=== PATIENT | female | born 1940 | race African-American/Black ===

== ENCOUNTER 2018-12-03 15:20 | Observation (INO) | payer OTHER, MEDICARE ==
[2018-12-03 15:46] VITALS: BMI 27.6
[2018-12-03] MEDS ORDERED: SODIUM CHLORIDE 500 ML IV STA (15:56)
[2018-12-03 16:32] LABS: BASO % 0.9 % (0-2.0); EOS % 1.1 % (0-4.5); HEMATOCRIT 44.8 % (32.4-45.2); HEMOGLOBIN 14.1 GM/dL (10.7-15.3); LYMPH % 25.1 % (8-40); MCH 26.2 pg (25.7-33.7); MCHC 31.4 g/dl (32.0-36.0); MEAN CELL VOLUME 83.5 fl (80-96); MEAN PLT VOLUME 8.3 fl (7.5-11.1); MONO % 11.1 % (3.8-10.2); NEUT % 61.8 % (42.8-82.8); PLATELET COUNT 186 K/MM3 (134-434); RBC 5.37 M/mm3 (3.60-5.2); RDW 14.3 % (11.6-15.6); WHITE BLOOD COUNT 4.1 K/mm3 (4.0-10.0)
--- NOTE | 2018-12-03 16:45 | PDOC ---
Documentation entered by Wilfredo Olivera SCRIBE, acting as scribe for Mildred Sow MD. Mildred Sow MD: This documentation has been prepared by the ayeibeJarod Daniel, SCRIBE, under my direction and personally reviewed by me in its entirety. I confirm that the documentation accurately reflects all work, treatment, procedures, and medical decision making performed by me. Attending Attestation - Resident Resident Name: Terrance Lowery - ED Attending Attestation I have performed the following: I have examined & evaluated the patient, The case was reviewed & discussed with the resident, I agree w/resident's findings & plan, Exceptions are as noted - HPI HPI: 12/03/18 16:09 78 year old female with no past medical history here today for evaluation of syncopal episodes. The patient reports that she has had 3 syncopal episodes this week with 2 episodes today. She reports losing consciousness for 2-3 minutes without any seizure activity or postictal period. She notes that her family was able to catch her each time and she did not hit the ground. Patient denies headache, lightheadedness. Denies fever, chills. Denies chest pain, shortness of breath. Denies nausea, vomiting, diarrhea, abdominal pain. Allergies: NKA - Physicial Exam PE: GENERAL: Awake, alert, and fully oriented, in no acute distress HEAD: No signs of trauma EYES: PERRLA, EOMI, sclera anicteric, conjunctiva clear ENT: Auricles normal inspection, hearing grossly normal, nares patent, oropharynx clear without exudates. Moist mucosa NECK: Normal ROM, supple, no lymphadenopathy, JVD, or masses LUNGS: Breath sounds equal, clear to auscultation bilaterally. No wheezes, and no crackles HEART: Regular rate and rhythm, normal S1 and S2, no murmurs, rubs or gallops ABDOMEN: Soft, nontender, normoactive bowel sounds. No guarding, no rebound. No masses EXTREMITIES: Normal range of motion, no edema. No clubbing or cyanosis. No cords, erythema, or tenderness NEUROLOGICAL: Cranial nerves II through XII grossly intact. Normal speech, normal gait. Motor and sensation intact SKIN: Warm, Dry, normal turgor, no rashes or lesions noted. - Medical Decision Making Pt with multiple episodes of syncope at home, asymptomatic at present. Symptoms are more consistent with syncope rather than seizure. Will obtain cardiac workup and admit.
[2018-12-03 16:54] LABS: ALBUMIN 4.2 g/dl (3.4-5.0); BILIRUBIN,TOTAL 1.2 mg/dL (0.2-1); CALCIUM 9.6 mg/dL (8.5-10.1); CREATININE 1.1 mg/dL (0.55-1.3); MAGNESIUM 2.4 mg/dL (1.8-2.4); TOT PROT 7.4 g/dl (6.4-8.2)
--- NOTE | 2018-12-03 16:55 | PDOC ---
History of Present Illness - General Chief Complaint: Syncope/Near Syncope Stated Complaint: SYNCOPE Time Seen by Provider: 12/03/18 15:46 History Source: Patient, Family Exam Limitations: No Limitations - History of Present Illness Initial Comments: 12/03/18 16:42 Patient is a 78F with no reported medical history here today complaining of syncope. Patient's daughter states that the patient passed out twice today, losing consciousness for about 3 minutes before regaining consciousness. Did not hit head. Patient returned to baseline rapidly with no postictal period. Denies chest pain, fevers, chills, nausea, vomiting, and shortness of breath. Denies prodromal symptoms. Patient initially stated that she did not pass out at all, but admitted to passing out after daughter confronted her. Patient had episode of syncope 6 days prior as well, and went to [facility] in [place] where she was diagnosed with an UTI, antibiotics finished yesterday. Patient had outpatient holter, head ct, and carotid studies done on Tuesday. Case d/w Dr Bettencourt, patient's PCP, who states she does not have the results of the studies but expects to have them Tuesday. PCP: Sg ([phone]) Past History - Past Medical History Allergies/Adverse Reactions: Allergies Allergy/AdvReac Type Severity Reaction Status Date / Time No Known Allergies Allergy Verified 12/03/18 15:34 Home Medications: Ambulatory Orders NK [No Known Home Medication] 12/03/18 COPD: No - Immunization History Immunization Up to Date: Yes - Suicide/Smoking/Psychosocial Hx Smoking History: Never smoked Hx Alcohol Use: No Drug/Substance Use Hx: No Review of Systems - Review of Systems Able to Perform ROS?: Yes Comments:: 12/03/18 16:59 GENERAL/CONSTITUTIONAL: No fever or chills. No weakness. HEAD, EYES, EARS, NOSE AND THROAT: No change in vision. No sore throat. CARDIOVASCULAR: No chest pain or shortness of breath RESPIRATORY: No cough, wheezing, or hemoptysis. GASTROINTESTINAL: No nausea, vomiting, diarrhea or constipation. GENITOURINARY: No dysuria, frequency, or change in urination. MUSCULOSKELETAL: No joint or muscle swelling or pain. No neck or back pain. SKIN: No rash NEUROLOGIC: No headache, vertigo, +loss of consciousness, no change in strength/ sensation. ENDOCRINE: No increased thirst. No abnormal weight change HEMATOLOGIC/LYMPHATIC: No anemia, easy bleeding, or history of blood clots. ALLERGIC/IMMUNOLOGIC: No hives or skin allergy. *Physical Exam - Vital Signs Last Vital Signs Temp Pulse Resp BP Pulse Ox 97.9 F 70 18 142/94 100 12/03/18 15:37 12/03/18 15:37 12/03/18 15:37 12/03/18 15:37 12/03/18 15:44 - Physical Exam Comments: 12/03/18 16:59 GENERAL: Awake, alert, and fully oriented, in no acute distress HEAD: No signs of trauma, normocephalic, atraumatic EYES: PERRLA, EOMI, sclera anicteric, conjunctiva clear ENT: Auricles normal inspection, hearing grossly normal, nares patent, oropharynx clear without exudates. Moist mucosa NECK: Normal ROM, supple, no lymphadenopathy, JVD, or masses LUNGS: No distress, speaks full sentences, clear to auscultation bilaterally HEART: Regular rate and rhythm, normal S1 and S2, no murmurs, rubs or gallops, peripheral pulses normal and equal bilaterally. ABDOMEN: Soft, nontender, normoactive bowel sounds. No guarding, no rebound. No masses EXTREMITIES: Normal inspection, Normal range of motion, no edema. No clubbing or cyanosis. NEUROLOGICAL: Cranial nerves II through XII grossly intact. Normal speech, no focal sensorimotor deficits SKIN: Warm, Dry, normal turgor, no rashes or lesions noted. ED Treatment Course - LABORATORY CBC & Chemistry Diagram: 12/03/18 16:17 12/03/18 16:17 - RADIOLOGY Radiology Studies Ordered: Category Date Time Status CHEST X-RAY PORTABLE* [RAD] Stat Radiology 12/03/18 15:57 Ordered Medical Decision Making - Medical Decision Making 12/03/18 16:59 Patient is a 78F with no reported medical history here today with syncope. Vitals normal and stable. DDx includes, but is not limited to: metabolic abnormality, uti, vasovagal, arrhythmia. Will evaluate with cbc, cmp, trop, ekg , cxr, pt/inr. EKG shows NSR with rate of 70. No st elevations/depressions. Normal axis. Normal intervals. No significant t wave abnormalities. 12/03/18 17:28 CXR clear. CBC normal. CMP normal. Trop neg. Will place patient in tele obs. 12/03/18 17:43 Dr Sultana, accepted to Dr Rodriguez. *DC/Admit/Observation/Transfer Diagnosis at time of Disposition: Syncope - Discharge Dispostion Condition at time of disposition: Stable Decision to Admit order: Yes - Referrals - Patient Instructions - Post Discharge Activity
[2018-12-03 16:58] LABS: INR 0.99 (0.83-1.09); PROTHROMBIN TIME (PATIENT) 11.7 SEC (9.7-13.0)
[2018-12-03 17:03] LABS: URINE APPEARANCE CLEAR; URINE BILIRUBIN NEGATIVE (NEGATIVE); URINE COLOR YELLOW; URINE GLUCOSE (UA) NEGATIVE (NEGATIVE); URINE KETONE NEGATIVE (NEGATIVE); URINE LEUK ESTERASE NEGATIVE (NEGATIVE); URINE NITRITE NEGATIVE (NEGATIVE); URINE PROTEIN NEGATIVE (NEGATIVE); URINE UROBILINOGEN 0.2 mg/dL (0.2-1.0)
--- NOTE | 2018-12-03 17:50 | PN ---
Teaching Attending Note Name of Resident: Gerda Sultana ATTENDING PHYSICIAN STATEMENT I saw and evaluated the patient. I reviewed the resident's note and discussed the case with the resident. I agree with the resident's findings and plan as documented. SUBJECTIVE: Reports 2 syncopal episodes today with no prodrome. No preceeding CP , palpitations, lightheadedness, diaphoresis, nausea. No head injury as daughter caught her both times. LOC for 2-3 minutes at a time. Daugter reports patient shaking and eyes rolling back. No tongue biting, No urinary or bowel incontinence. No post-episodic confusion. OBJECTIVE: Afebrile, Hemodynamically Stable. Last Vital Signs Temp Pulse Resp BP Pulse Ox 97.9 F 70 18 142/94 100 12/03/18 15:37 12/03/18 15:37 12/03/18 15:37 12/03/18 15:37 12/03/18 15:44 HEENT- Atraumatic, Normocephalic Heart - S1, S2, RRR Lungs - Clear to auscultation Abdomen - soft, non-tender. Bowel Sounds normal Extremities - no edema, no calf tenderness Neuro - AAO x 3. Tone/Power normal all 4 extremities. Laboratory Results - last 24 hr 12/03/18 12/03/18 12/03/18 16:17 16:17 16:17 WBC 4.1 RBC 5.37 H Hgb 14.1 Hct 44.8 MCV 83.5 MCH 26.2 MCHC 31.4 L RDW 14.3 Plt Count 186 MPV 8.3 Absolute Neuts (auto) 2.5 Neutrophils % 61.8 Lymphocytes % 25.1 Monocytes % 11.1 H Eosinophils % 1.1 Basophils % 0.9 Nucleated RBC % 0 PT with INR 11.70 INR 0.99 Sodium 137 Potassium 5.0 Chloride 104 Carbon Dioxide 29 Anion Gap 4 L BUN 12 Creatinine 1.1 Est GFR (CKD-EPI)AfAm 55.30 Est GFR (CKD-EPI)NonAf 47.71 Random Glucose 83 Calcium 9.6 Magnesium 2.4 Total Bilirubin 1.2 H AST 16 ALT 16 Alkaline Phosphatase 63 Creatine Kinase Creatine Kinase Index CK-MB (CK-2) Troponin I Total Protein 7.4 Albumin 4.2 Urine Color Urine Appearance Urine pH Ur Specific [place] Urine Protein Urine Glucose (UA) Urine Ketones Urine Blood Urine Nitrite Urine Bilirubin Urine Urobilinogen Ur Leukocyte Esterase 12/03/18 12/03/18 16:17 16:17 WBC RBC Hgb Hct MCV MCH MCHC RDW Plt Count MPV Absolute Neuts (auto) Neutrophils % Lymphocytes % Monocytes % Eosinophils % Basophils % Nucleated RBC % PT with INR INR Sodium Potassium Chloride Carbon Dioxide Anion Gap BUN Creatinine Est GFR (CKD-EPI)AfAm Est GFR (CKD-EPI)NonAf Random Glucose Calcium Magnesium Total Bilirubin AST ALT Alkaline Phosphatase Creatine Kinase 265 H Creatine Kinase Index 0.4 CK-MB (CK-2) 1.3 Troponin I < 0.02 Total Protein Albumin Urine Color Yellow Urine Appearance Clear Urine pH 7.0 Ur Specific [place] 1.014 Urine Protein Negative Urine Glucose (UA) Negative Urine Ketones Negative Urine Blood Negative Urine Nitrite Negative Urine Bilirubin Negative Urine Urobilinogen 0.2 Ur Leukocyte Esterase Negative ASSESSMENT AND PLAN: 78 year old female with no significant PMH, presents with episodes of syncope in the past week. She reports 2 syncopal episodes today with no prodrome. No preceeding CP, palpitations, lightheadedness, diaphoresis, nausea. No head injury as daughter caught her both times. LOC for 2-3 minutes at a time. Daughter reports patient shaking and eyes rolling back. No tongue biting, No urinary or bowel incontinence. No post-episodic confusion. 1. Recurrent Syncope, etiology unclear, possible seizure Patient apparently had out-patient CT Head, Carotid Duplex and Holter yesterday (12/02/18) as per Dr. Bettencourt to work-up first episode of syncope 6 days ago. Currently neurologically intact - will wait on above results, likely back tomorrow as per Dr. Bettencourt. Orthostatics negative. Will order Echocardiogram, EEG Telemonitoring overnight. Neuro consult. Neurochecks. DVT Px - Heparin SQ
--- NOTE | 2018-12-03 18:25 | HP ---
CHIEF COMPLAINT: syncope x 2 PCP: Dr. Bettencourt [phone] HISTORY OF PRESENT ILLNESS: 78 y/o F with no significant PMH who presents to the ED c/o two episodes of "passing out" which occurred today. As per daughter, pt was standing up and having a conversation with her at 2pm this afternoon when she started to shake. States her UE shook, her eyes rolled to the back of her head, and then she "began to go down." Daughter caught her. +LOC for 2-3 min before she came to. No head trauma. Pt did not have chest pain, MERCHANT, palpitations, and did not feel emotional, or increasingly warm before the event. A few minutes after this episode, patient had an identical episode to first, daughter caught her once again. Denies MERCHANT, fever, chills, SOB, chest pain or pressure, or changes in urinary or bowel function. No incontinence or tongue biting. Of note, six days ago on , [place] She felt very warm so she decided to sit in a colleague's truck to avoid the heat. While in the truck, her colleague who was a physician noted that she syncopized while seated. States her "pulse rate was low" when it occurred. She told her PCP about this event, and had a holter, head CT, carotid duplex done on Tue. She is supposed to get the results on Tuesday. Pt has seen a obstetrics scrub nurse in the past, Dr. Rodriguez and states she has had stress testing done previously and "used to have a problem with her heart" but cannot describe. ER course was notable for: (1) NS 500cc (2) orthostatics (-) (3) Recent Travel: denies PAST MEDICAL HISTORY: denies PAST SURGICAL HISTORY: hysterectomy, b/l cataract Social History: lives in [place] Smoking: denies Alcohol: social Drugs: denies Family History: non-contributory Allergies No Known Allergies Allergy (Verified 12/03/18 15:34) HOME MEDICATIONS: Home Medications Medication Instructions Recorded NK [No Known Home Medication] 12/03/18 confirmed with patient REVIEW OF SYSTEMS CONSTITUTIONAL: Absent: fever, chills, diaphoresis, generalized weakness, malaise, loss of appetite, weight change HEENT: Absent: rhinorrhea, nasal congestion, throat pain, throat swelling, difficulty swallowing, mouth swelling, ear pain, eye pain, visual changes CARDIOVASCULAR: Absent: chest pain, syncope, palpitations, irregular heart rate, lightheadedness , peripheral edema RESPIRATORY: Absent: cough, shortness of breath, dyspnea with exertion, orthopnea, wheezing, stridor, hemoptysis GASTROINTESTINAL: Absent: abdominal pain, abdominal distension, nausea, vomiting, diarrhea, constipation, melena, hematochezia GENITOURINARY: Absent: dysuria, frequency, urgency, hesitancy, hematuria, flank pain, genital pain MUSCULOSKELETAL: Absent: myalgia, arthralgia, joint swelling, back pain, neck pain SKIN: Absent: rash, itching, pallor HEMATOLOGIC/IMMUNOLOGIC: Absent: easy bleeding, easy bruising, lymphadenopathy, frequent infections ENDOCRINE: Absent: unexplained weight gain, unexplained weight loss, heat intolerance, cold intolerance NEUROLOGIC: Absent: headache, focal weakness or paresthesias, dizziness, unsteady gait, seizure, mental status changes, bladder or bowel incontinence PSYCHIATRIC: Absent: anxiety, depression, suicidal or homicidal ideation, hallucinations. PHYSICAL EXAMINATION Vital Signs - 24 hr 12/03/18 12/03/18 15:37 18:01 Temperature 97.9 F 98.3 F Pulse Rate 70 Pulse Rate [ 75 Left Apical] Respiratory 18 18 Rate Blood Pressure 142/94 Blood Pressure 146/98 [Left Arm] O2 Sat by Pulse 100 100 Oximetry (%) GENERAL: Awake, alert, and fully oriented, in no acute distress. HEAD: Normal with no signs of trauma. EYES: Pupils equal, round and reactive to light, extraocular movements intact, sclera anicteric, conjunctiva clear. EARS, NOSE, THROAT: Ears normal, nares patent, oropharynx clear without exudates. Moist mucous membranes. NECK: Normal range of motion, supple LUNGS: Breath sounds equal, clear to auscultation bilaterally. No wheezes, and no crackles. No accessory muscle use. HEART: Regular rate and rhythm, normal S1 and S2 without murmur, rub or gallop. ABDOMEN: Soft, nontender, not distended, normoactive bowel sounds, no guarding, no rebound, no masses. MUSCULOSKELETAL: Normal range of motion at all joints. No bony deformities or tenderness. No CVA tenderness. LOWER EXTREMITIES: 2+ pt pulses, warm, well-perfused. No edema. NEUROLOGICAL: Cranial nerves II-XII intact. Normal speech. Ambulating well with ease. PSYCHIATRIC: Cooperative. SKIN: Warm, dry Laboratory Tests 12/03/18 12/03/18 12/03/18 16:17 16:17 16:17 WBC 4.1 Hgb 14.1 Hct 44.8 Plt Count 186 Sodium 137 Potassium 5.0 Chloride 104 Carbon Dioxide 29 Anion Gap 4 L BUN 12 Creatinine 1.1 Total Bilirubin 1.2 H Creatine Kinase Urine Appearance Clear Urine pH 7.0 Ur Specific [place] 1.014 Urine Protein Negative Urine Glucose (UA) Negative Urine Ketones Negative Urine Blood Negative Urine Nitrite Negative Urine Bilirubin Negative Ur Leukocyte Esterase Negative 12/03/18 16:17 Total Bilirubin Creatine Kinase 265 H Urine Appearance EKG: NSR, no St or T wave changes, qtc 371ms CXR: no acute changes ASSESSMENT/PLAN: 78 y/o F with no significant PMH who presents to the ED c/o two episodes of "passing out" which occurred today. #Syncope vs. seizure -possible vasovagal, or 2/2 arrythmia not picked up by EKG has past hx cardiac issues -could also be seizure, however w/o incontinence or tongue biting -orthostatic (-) in ER, however s/p 500 cc bolus NS -carotid duplex, head CT, holter already done by PCP, Dr. Bettencourt. Will have results by Tuesday no need to repeat at [facility] -will need to retrieve files from obstetrics scrub nurse -f/u ECHO, EEG -neuro consult: Dr. Leung -c/w gentle IVF. -tele monitoring #F/E/N IV NS 75 cc/hr continue to follow lytes regular diet #PPX early ambulation, SCD's #Dispo tele obs Visit type - Emergency Visit Emergency Visit: Yes Care time: The patient presented to the Emergency Department on the above date and was hospitalized for further evaluation of their emergent condition. - New Patient This patient is new to me today: Yes Date on this admission: 12/03/18 - Critical Care Critical Care patient: No
[2018-12-03] MEDS: HEPARIN NA (PORCINE) 5,000 UNITS/ML 1ML VIAL SQ SCH (21:07)
[2018-12-03] MEDS: SODIUM CHLORIDE 1,000 ML IV SCH (21:07)
[2018-12-04] MEDS: HEPARIN NA (PORCINE) 5,000 UNITS/ML 1ML VIAL SQ SCH ×3 (05:01→22:28)
[2018-12-04 06:51] LABS: BASO % 0.7 % (0-2.0); EOS % 2.4 % (0-4.5); HEMOGLOBIN 13.1 GM/dL (10.7-15.3); LYMPH % 37.8 % (8-40); MCH 26.6 pg (25.7-33.7); MCHC 31.9 g/dl (32.0-36.0); MEAN CELL VOLUME 83.5 fl (80-96); MEAN PLT VOLUME 8.9 fl (7.5-11.1); MONO % 11.1 % (3.8-10.2); PLATELET COUNT 184 K/MM3 (134-434); RBC 4.91 M/mm3 (3.60-5.2); RDW 14.4 % (11.6-15.6); WHITE BLOOD COUNT 4.7 K/mm3 (4.0-10.0)
[2018-12-04 07:25] LABS: CALCIUM 8.8 mg/dL (8.5-10.1); CREATININE 1.1 mg/dL (0.55-1.3); MAGNESIUM 2.5 mg/dL (1.8-2.4); PHOSPHOROUS 3.5 mg/dL (2.5-4.9); POTASSIUM 4.5 mmol/L (3.5-5.1)
[2018-12-04] MEDS: SODIUM CHLORIDE 1,000 ML IV SCH (10:16)
--- NOTE | 2018-12-04 11:17 | EKG ---
Test Reason : Blood Pressure : / mmHG Vent. Rate : 070 BPM Atrial Rate : 070 BPM P-R Int : 162 ms QRS Dur : 084 ms QT Int : 344 ms P-R-T Axes : 048 017 064 degrees QTc Int : 371 ms POOR DATA QUALITY, INTERPRETATION MAY BE ADVERSELY AFFECTED NORMAL SINUS RHYTHM POSSIBLE LEFT ATRIAL ENLARGEMENT CANNOT RULE OUT ANTERIOR INFARCT , AGE UNDETERMINED ABNORMAL ECG NO PREVIOUS ECGS AVAILABLE Confirmed by MIGUEL A BAIG, MEKA ([id number]) on 12/04/2018 11:17:37 AM Referred By: Confirmed By:MEKA GRADY MD
--- NOTE | 2018-12-04 12:33 | PN ---
Teaching Attending Note Name of Resident: Nancy Rivas ATTENDING PHYSICIAN STATEMENT I saw and evaluated the patient. I reviewed the resident's note and discussed the case with the resident. I agree with the resident's findings and plan as documented. SUBJECTIVE:asymptomatic. states no repeat episodes. requesting to go home. states she saw her PMD after 1st episode a week ago and had some test done which she does not have results. then 2 the other day which she had no prodromal symptoms and was confused for some time once she did become alert. denies having an emotional conversation or under extreme stress, CP, SOB, fever , chills, N/V/C/D does not take any new medications, OTC or herbal OBJECTIVE: Last Vital Signs Temp Pulse Resp BP Pulse Ox 97.6 F 77 18 110/59 L 97 12/04/18 09:00 12/04/18 10:00 12/04/18 10:00 12/04/18 10:00 12/04/18 09:00 General NAD HEENT no carotid bruit CV S1 S2 RRR no murmur/rub/gallop Lungs CTA B/L no wheezing/rales/rhonchi Neuro CN II-XII grossly intact, moves all 4 extremities ASSESSMENT AND PLAN: 78 year old female with no significant PMH, presents with episodes of syncope in the past week 1. Recurrent Syncope, etiology unclear, possible seizure vs syncope with convulsions. will call out to PMD today to obtain studies done and results. no events on equipment monitor phototypesetting. F/u Echo, EEG. neuro consulted. 2. DVT Px - Heparin SQ 3. d/c home if all testing results as negative.
--- NOTE | 2018-12-04 13:34 | PN ---
Physical Exam: SUBJECTIVE: Patient seen and examined a bedside. No acute events overnight. Pt seen up and and walking. Per nurse, no syncopal episodes overnight. Denies n/v, cp, sob, abd pain. Bonilla PO diet. OBJECTIVE: Vital Signs Temperature 97.6 F 12/04/18 09:00 Pulse Rate 77 12/04/18 10:00 Respiratory Rate 18 12/04/18 10:00 Blood Pressure 110/59 L 12/04/18 10:00 O2 Sat by Pulse Oximetry (%) 97 12/04/18 09:00 GENERAL: Pleasant female. AAOx3. NAD. HEENT: AT/NC. EOMI. GERMAN. Moist mucus membranes. CV: RRR. Normal S1, S2. No murmurs noted. Pulm: CTA B/L. No wheezes, rhonchi, rales noted. Abd: Soft, NT/ND. +BS Ext: No peripheral edema noted. CBCD WBC 4.7 K/mm3 (4.0-10.0) 12/04/18 05:35 RBC 4.91 M/mm3 (3.60-5.2) 12/04/18 05:35 Hgb 13.1 GM/dL (10.7-15.3) 12/04/18 05:35 Hct 41.0 % (32.4-45.2) 12/04/18 05:35 MCV 83.5 fl (80-96) 12/04/18 05:35 MCHC 31.9 g/dl (32.0-36.0) L 12/04/18 05:35 RDW 14.4 % (11.6-15.6) 12/04/18 05:35 Plt Count 184 K/MM3 (134-434) 12/04/18 05:35 MPV 8.9 fl (7.5-11.1) 12/04/18 05:35 CMP Sodium 141 mmol/L (136-145) 12/04/18 05:35 Potassium 4.5 mmol/L (3.5-5.1) 12/04/18 05:35 Chloride 108 mmol/L (98-107) H 12/04/18 05:35 Carbon Dioxide 27 mmol/L (21-32) 12/04/18 05:35 Anion Gap 5 MMOL/L (8-16) L 12/04/18 05:35 BUN 16 mg/dL (7-18) 12/04/18 05:35 Creatinine 1.1 mg/dL (0.55-1.3) 12/04/18 05:35 Calcium 8.8 mg/dL (8.5-10.1) 12/04/18 05:35 Total Bilirubin 1.2 mg/dL (0.2-1) H 12/03/18 16:17 AST 16 U/L (15-37) 12/03/18 16:17 ALT 16 U/L (13-61) 12/03/18 16:17 Alkaline Phosphatase 63 U/L (45-117) 12/03/18 16:17 Total Protein 7.4 g/dl (6.4-8.2) 12/03/18 16:17 Albumin 4.2 g/dl (3.4-5.0) 12/03/18 16:17 Active Medications Heparin Sodium (Porcine) (Heparin -) 5,000 unit SQ TID [facility] Last Admin: 12/04/18 05:01 Dose: Not Given Sodium Chloride (Normal Saline -) 1,000 mls @ 75 mls/hr IV ASDIR [facility] Last Admin: 12/04/18 10:16 Dose: 75 mls/hr IMAGING: * CXR: No acute changes * EKG: NSR, No ST or T wave changes, QTc 371 ms * Echo: pending ASSESSMENT/PLAN: 78 y/o F with no significant PMH who presents to the ED c/o two episodes of "passing out" which occurred today. #Syncope vs. seizure -possibly vasovagal, or 2/2 arrhythmia not picked up by EKG has past hx cardiac issues -Contacted PCP regarding carotid duplex, head CT, holter already done this past Tuesday (ordered by Dr. Bettencourt, PCP); results still pending today. -f/u ECHO, EEG -f/u neuro consult (Dr. Leung) -tele monitoring #F/E/N IV NS 75 cc/hr continue to follow lytes regular diet #PPX -DVT: SQH #Dispo -tele obs -d/c home if tests neg Visit type - Emergency Visit Emergency Visit: Yes ED Registration Date: 12/03/18 Care time: The patient presented to the Emergency Department on the above date and was hospitalized for further evaluation of their emergent condition. - New Patient This patient is new to me today: Yes Date on this admission: 12/04/18 - Critical Care Critical Care patient: No
--- NOTE | 2018-12-04 15:02 | EKG ---
Test Reason : Blood Pressure : / mmHG Vent. Rate : 064 BPM Atrial Rate : 064 BPM P-R Int : 170 ms QRS Dur : 086 ms QT Int : 346 ms P-R-T Axes : 051 029 058 degrees QTc Int : 356 ms NORMAL SINUS RHYTHM POSSIBLE LEFT ATRIAL ENLARGEMENT NONSPECIFIC T WAVE ABNORMALITY ABNORMAL ECG WHEN COMPARED WITH ECG OF 03-DEC-2018 15:29, NO SIGNIFICANT CHANGE WAS FOUND Confirmed by XAVIER BAIG, TERENCE ([id number]) on 12/04/2018 3:01:48 PM Referred By: Confirmed By:TERENCE PARK MD
--- NOTE | 2018-12-04 16:57 | CON.NEURO ---
Consult - Alcohol/Substance Use Hx Alcohol Use: No - Smoking History Smoking history: Never smoked Have you smoked in the past 12 months: No Home Medications - Allergies Allergies/Adverse Reactions: Allergies Allergy/AdvReac Type Severity Reaction Status Date / Time No Known Allergies Allergy Verified 12/03/18 15:34 - Home Medications Home Medications: Ambulatory Orders NK [No Known Home Medication] 12/03/18 Physical Exam-Neuro Vital Signs: Vital Signs Temperature 98.3 F 12/04/18 13:50 Pulse Rate 78 12/04/18 13:50 Respiratory Rate 18 12/04/18 13:50 Blood Pressure 151/93 12/04/18 13:50 O2 Sat by Pulse Oximetry (%) 97 12/04/18 09:00 Labs: CBC, BMP 12/04/18 05:35 12/04/18 05:35 INR, PTT INR 0.99 (0.83-1.09) 12/03/18 16:17 Assessment/Plan cc Two episode of passing out HPI 78 year old female, otherwise healthy, no chronic ongoing medical problem. She has two episode of passing out in two weeks. One was on and she had ct head and carotid ultrasound done , ordered by her pmd ( Dr Hung). Patient had another episode, while here in [place], and she was admitted. She did not have any ct head, she denies any focal neurological symptoms, she is in telemetry and being monitored. Patient is feeling better . There is no results available for ct head and carotid ultrasound. PAST MEDICAL HISTORY: denies PAST SURGICAL HISTORY: hysterectomy, b/l cataract Social History: lives in [place] Smoking: denies Alcohol: social Drugs: denies Family History: non-contributory Allergies No Known Allergies Allergy (Verified 12/03/18 15:34) No home medication NEUROLOGICAL EXAMINATION Alert oriented x 3 CN all intact Motor 5/5 all intact sensation is normal reflex is normal gait and coordination is noraml ct head and carotid ultrasound done on December 02 in [place] , result not available Assessment/Plan Recurrent episode of passing out , most likley syncope unlikely to be seizure Plan: Will obtain ct and carotid results from dr hung office ( , [id number]) - eeg no need for AED - Cardiac work up and follow up - once ct head is negative, she can be discharged from neurological point of view Thanking you so much Royal Leung MD
[2018-12-05] MEDS: HEPARIN NA (PORCINE) 5,000 UNITS/ML 1ML VIAL SQ SCH (06:00)
--- NOTE | 2018-12-05 07:04 | ECHO ---
Name: LILIA BRAVO Exam:Adult Echocardiogram Study Date: 12/04/2018 12:39 PM Age: 78 yrs Reason For Study: SYNCOPE Height: 63 in Weight: 156 lb BSA: 1.7 m2 MMode/2D Measurements & Calculations IVSd: 0.93 cm Ao root diam: 3.2 cm LVIDd: 4.1 cm LA dimension: 3.5 cm LVIDs: 2.4 cm ACS: 1.8 cm LVPWd: 0.87 cm IVSs: 1.5 cm LVPWs: 1.4 cm EDV(Teich): 72.6 ml ESV(Teich): 21.0 ml LVOT diam: 2.0 cm Doppler Measurements & Calculations MV E max florentino: 69.3 cm/sec Ao V2 max: 208.0 cm/sec MV A max florentino: 81.7 cm/sec Ao max P.3 mmHg MV E/A: 0.85 Ao V2 mean: 131.8 cm/sec Ao mean P.4 mmHg Ao V2 VTI: 36.2 cm OPAL(I,D): 1.7 cm2 AI P1/2t: 525.5 msec OPAL(V,D): 1.6 cm2 AI max florentino: 432.2 cm/sec LV V1 max P.9 mmHg AI max P.7 mmHg LV V1 mean P.5 mmHg AI dec slope: 240.9 cm/sec2 LV V1 max: 110.3 cm/sec LV V1 mean: 74.1 cm/sec LV V1 VTI: 20.5 cm MR max florentino: 498.5 cm/sec SV(LVOT): 61.9 ml MR max P.4 mmHg TR max florentino: 203.8 cm/sec PI end-d florentino: 106.6 cm/sec TR max P.6 mmHg Med Peak E' Florentino: 5.0 cm/sec Med E/e': 14.0 Lat Peak E' Florentino: 6.9 cm/sec Lat E/e': 10.0 Procedure A complete two-dimensional transthoracic echocardiogram was performed (2D, M-mode, Doppler and color flow Doppler). Left Ventricle The left ventricle is normal in size. Left ventricular systolic function is normal. Ejection Fraction = 65- 70%. Grade I diastolic dysfunction, (abnormal relaxation pattern). Ratio E/E'= 14. No regional wall m otion abnormalities noted. Right Ventricle The right ventricle is normal size. The right ventricular systolic function is normal. Atria The left atrial size is normal. Right atrial size is normal. Mitral Valve The mitral valve is normal in structure and function. There is mild mitral regurgitation. Tricuspid Valve The tricuspid valve is normal in structure and function. There is mild tricuspid regurgitation. Right ventricular systolic pressure is normal. Aortic Valve There is moderate aortic sclerosis.;. Small echodensity is seen attached to aortic valve, cannot excl ude fibroelastoma, Clinical correlation is recommended. CAROLYN if clinically indicated. Moderate aortic regurgitation. Pulmonic Valve The pulmonic valve is not well visualized. Mild pulmonic valvular regurgitation. Great Vessels The aortic root is normal size. Pericardium/Pleura There is no pericardial effusion. Interpretation Summary The left ventricle is normal in size. Left ventricular systolic function is normal. No regional wall motion abnormalities noted. Ejection Fraction = 65-70%. Grade I diastolic dysfunction, (abnormal relaxation pattern). Ratio E/E'= 14 The right ventricular systolic function is normal. The left atrial size is normal. Right atrial size is normal. There is mild mitral regurgitation. There is mild tricuspid regurgitation. Right ventricular systolic pressure is normal. There is moderate aortic sclerosis.; Small echodensity is seen attached to aortic valve, cannot exclude fibroelastoma, Clinical correlatio n is recommended. CAROLYN if clinically indicated Moderate aortic regurgitation. Mild pulmonic valvular regurgitation. There is no pericardial effusion. Previous study is not available for comparison Jonathon Ortiz MD 12/04/2018 04:09 PM
--- NOTE | 2018-12-05 10:50 | CON.CARD ---
Consult Consult Specialty:: Cardiology Referred by:: Hospitalist Reason for Consultation:: Cardiac evaluation - History of Present Illness Chief Complaint: ? Syncope History of Present Illness: Patient is a 78 year old female with no significant PMH who presents with what appeared to be syncope. Patient was standing and having conversation with her daughter, when she began to have tremor, her eyes rolled back and began to slowly fall down. She did not suffer any injury as her daughter was able to catch her. She denies any other cardiac symptoms including chest pain, SOB or palpitations at the time. Currently, she is awake and alert. She denies chest pain, SOB or palpitations. She denies paroxysmal nocturnal dyspnea or orthopnea. She denies fever or chills. She denies nausea, vomiting, diarrhea or abdominal pain. She denies headache or dizziness at this time. Patient had a similar episode 1 week ago when she also passed out while seated and was found to have UTI. She was seen by her Poultry Scientist in [place] and was given 5 day course of antibiotics. She was scheduled for carotid Doppler and Holter. She is planned to see a lap maker in [place]. 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 - Alcohol/Substance Use Hx Alcohol Use: Yes (social) - Smoking History Smoking history: Never smoked Have you smoked in the past 12 months: No Home Medications - Allergies Allergies/Adverse Reactions: Allergies Allergy/AdvReac Type Severity Reaction Status Date / Time No Known Allergies Allergy Verified 12/03/18 15:34 - Home Medications Home Medications: Ambulatory Orders NK [No Known Home Medication] 12/03/18 Review of Systems - Review of Systems Constitutional: denies: Chills, Fever Cardiovascular: denies: Chest Pain, Palpitations, Shortness of Breath Respiratory: denies: Cough, Hemoptysis, Orthopnea, PND, SOB, SOB on Exertion Gastrointestinal: denies: Abdominal Pain, Constipation, Diarrhea, Melena, Nausea , Rectal Bleeding, Vomiting Genitourinary: denies: Dysuria, Hematuria Musculoskeletal: denies: Back Pain, Joint Pain Neurological: reports: Syncope. denies: Confusion, Dizziness, Headache, Numbness, Parasthesia, Seizure, Unsteady Gait Vital Signs: Vital Signs Temperature 97.8 F 12/05/18 06:45 Pulse Rate 63 12/05/18 06:45 Respiratory Rate 18 12/05/18 06:45 Blood Pressure 154/93 12/05/18 06:45 O2 Sat by Pulse Oximetry (%) 99 12/04/18 21:00 Eyes: Yes: PERRL HENT: Yes: Atraumatic Neck: Yes: Supple Respiratory: Yes: CTA Bilaterally Gastrointestinal: Yes: Normal Bowel Sounds, Soft. No: Tenderness Cardiovascular: Yes: Regular Rate and Rhythm JVD: No Carotid Bruit: No PMI: Non-Displaced Heart Sounds: Yes: S1, S2 Murmur: Yes: Diastolic Murmur, Grade 1 Edema: No - Other Data Labs, Other Data: CBC, BMP 12/04/18 05:35 12/04/18 05:35 INR, PTT INR 0.99 (0.83-1.09) 12/03/18 16:17 NSR, Echo: Report Reviewed Imaging - Results Chest X-ray: Report Reviewed (Unremarkable) EKG: Report Reviewed Problem List - Problems (1) HTN (hypertension) Code(s): I10 - ESSENTIAL (PRIMARY) HYPERTENSION Qualifiers: Hypertension type: unspecified Qualified Code(s): I10 - Essential (primary ) hypertension (2) Aortic valve regurgitation Code(s): I35.1 - NONRHEUMATIC AORTIC (VALVE) INSUFFICIENCY Qualifiers: Cardiac valve disease etiology: nonrheumatic Qualified Code(s): I35.1 - Nonrheumatic aortic (valve) insufficiency (3) Syncope Code(s): R55 - SYNCOPE AND COLLAPSE Qualifiers: Syncope type: unspecified Qualified Code(s): R55 - Syncope and collapse Assessment/Plan 1. Syncope, etiology to be determined 2. Aortic valve regurgitations with ? fibroelestoma (which is benign) 3. Hypertension PLAN: 1. Monitor BP, currently medication not needed unless BP is persistently elevated 2. Echocardiography was reviewed. No need for CAROLYN at this time in view of patient remaining asymptomatic. Doubt vegetation and patient does not exhibit signs of endocarditis 3. Follow up with her lap maker in [place] as outpatient 4. Holter and carotid Doppler report to be followed 5. Neurology input noted. Awake Head CT Further plans are to follow Jonathon Ortiz MD
[2018-12-05 11:08] VITALS: PULSE 77
--- NOTE | 2018-12-05 11:58 | PN ---
Teaching Attending Note Name of Resident: Sharon Avina ATTENDING PHYSICIAN STATEMENT I saw and evaluated the patient. I reviewed the resident's note and discussed the case with the resident. I agree with the resident's findings and plan as documented. SUBJECTIVE: No further syncopal events. Reports no preceeding CP, palpitations, lightheadedness, diaphoresis, nausea associated with episodes of LOC. No tongue biting, No urinary or bowel incontinence. No post-episodic confusion. OBJECTIVE: Afebrile, Hemodynamically Stable. Last Vital Signs Temp Pulse Resp BP Pulse Ox 98 F 77 18 117/86 99 12/05/18 10:00 12/05/18 10:00 12/05/18 10:12/05/18 10:12/04/18 21:00 Heart - S1, S2, RRR Lungs - Clear to auscultation Abdomen - soft, non-tender. Bowel Sounds normal Extremities - no edema, no calf tenderness Neuro - AAO x 3. Tone/Power normal all 4 extremities. Current Medications Generic Name Dose Route Start Last Admin Trade Name Freq PRN Reason Stop Dose Admin Heparin Sodium (Porcine) 5,000 unit 12/03/18 22:00 12/05/18 06:00 Heparin - SQ 5,000 unit TID TROY Administration ASSESSMENT AND PLAN: 78 year old female with no significant PMH, presents with episodes of syncope in the past week. She reports 2 syncopal episodes today with no prodrome. No preceding CP, palpitations, lightheadedness, diaphoresis, nausea. No head injury as daughter caught her both times. LOC for 2-3 minutes at a time. Daughter reports patient shaking and eyes rolling back. No tongue biting, No urinary or bowel incontinence. No post-episodic confusion. 1. Recurrent Syncope, etiology unclear, possible seizure Patient had out-patient CT Head, Carotid Duplex and Holter 12/02/[address] Bettencourt to work-up first episode of syncope 6 days ago. Currently neurologically intact - above results were not back by yesterday - will call again today. Echo - normal EF, grade I diastolic dysfunction, small echodensity AV - no further in-patient work-up required as per Cardiology eval. Seen by Neuro, awaiting EEG. Neurologically Stable. For discharge once above test reports return unremarkable. DVT Px - Heparin SQ
--- NOTE | 2018-12-05 15:39 | DS ---
Physical Exam: SUBJECTIVE: Patient seen and examined, no complaints overnight. OBJECTIVE: Vital Signs Period Temp Pulse Resp BP Sys/Somers Pulse Ox Last 24 Hr 97.8 F-98.6 F 61-77 18-18 117-154/69-93 99 PHYSICAL EXAM GENERAL: The patient is awake, alert, and fully oriented, in no acute distress. HEAD: Normal with no signs of trauma. LUNGS: Breath sounds equal, clear to auscultation bilaterally, no wheezes, no crackles, HEART: Regular rate and rhythm, S1, S2 without murmur, rub or gallop. ABDOMEN: Soft, nontender, nondistended, normoactive bowel sounds, no guarding, no rebound, no hepatosplenomegaly, no masses. EXTREMITIES: 2+ pulses, warm, well-perfused, no edema. NEUROLOGICAL: Cranial nerves II through XII grossly intact. Normal speech, gait not observed. PSYCH: Normal mood, normal affect. SKIN: Warm, dry, normal turgor, no rashes or lesions noted. LABS HOSPITAL COURSE: Date of Admission:12/03/18 Patient admitted for syncope. Echo showed Diastolic dysfunction grade 1, patient had an echodensity on aortic valve. Discussed with cardio and patient can f/u as an outpatient, nothing further to do as an inpatient. Called Patients PCP, Dr. White and had recent head CT and Carotid dopplers faxed over. Reports were both negative for any abnormalities. PCP will make an appointment with patient this week to discuss results of Holter monitor and will refer patient to a vial gauger with the copy of her ECHO. Labs faxed to patients PCP. Per Neuro patient can have a an EEG done as an outpatient. Patient labs within normal limits and vitals stable. Patient stable for discharge at this time. Date of Discharge: 12/05/18 Minutes to complete discharge: 41 Discharge Summary Reason For Visit: SYNCOPE Current Active Problems Aortic valve regurgitation (Acute) HTN (hypertension) (Acute) Condition: Improved - Instructions Diet, Activity, Other Instructions: You were admitted to the hospital after a fainting episode. Your heart was monitored overnight with no concerning events. You were seen by a neurologist. During your hospital stay, your symptoms improved. You are being discharged home. MEDICATION RECOMMENDATIONS Please continue taking your home meds as directed. FOLLOW UP Please follow up with your PCP, Dr. Bettencourt within 1 week. Please remember to bring the copy of your echo to this appointment. 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 You do not need to stay in the hospital for this but you should follow up with you vial gauger. Your PCP will give you a referral to a vial gauger. You should also follow up with a neurologist. You should have a EEG done of your brain to make sure it is functioning normal. If you experience another fainting episode, seizures, chest pain, shortness of breath or other associated symptoms, please proceed to your nearest emergency room immediately. Referrals: Royal Leung MD [Staff Physician] - Vazquez Hung [Other] (fax: [phone]) Disposition: HOME - Home Medications Comprehensive Discharge Medication List: Ambulatory Orders NK [No Known Home Medication] 12/03/18 This patient is new to me today: Yes Date on this admission: 12/05/18 Emergency Visit: No Critical Care patient: No - Discharge Referral Referred to [facility] Med P.C.: No
[2018-12-05 16:23] VITALS: BP 120/65; TEMP 98.5
== END 2018-12-05 17:59 | disposition home or self-care (01) ==
LOC: JER 15:20 → JERBED 17:32 → J4S 18:36
PROC: 3E0337Z Introduction of Electrolytic and Water Balance Substance into Peripheral Vein, Percutaneous Approach (ICD-10-PCS; principal; 2018-12-03)
PROC: 3E013GC Introduction of Other Therapeutic Substance into Subcutaneous Tissue, Percutaneous Approach (ICD-10-PCS; 2018-12-03)
DX: R55 Syncope and collapse (principal); I10 Essential (primary) hypertension; I35.1 Nonrheumatic aortic (valve) insufficiency
CPT/HCPCS: 36415; 71045-TC-FY; 80048; 80053; 81003; 82550; 82553; 83036; 83735; 84100; 84443; 84484; 85025; 85610; 87086; 93005; 93010; 93306-TC; 96360; 96372; 97116-GP; 97161-GP; 99283-25; G0378; J1644; J7030